=== PATIENT | female | born 1990 | race African-American/Black ===

== ENCOUNTER 2024-12-06 16:59 | Emergency (ER) | payer MEDICAID, OTHER ==
[~2024-12-06] VITALS: Ht 167.6 cm; Wt 122.0 kg
[2024-12-06 17:13] VITALS: O2SAT 100
[2024-12-06 17:21] VITALS: BP 128/85; PULSE 83; RESP 18; TEMP 37.1; O2SAT 100
[2024-12-06 17:52] LABS: BASOPHILS % 0.3 % (0.0-2.0); EOSINOPHILS % 0.1 % (0.0-5.0); HEMATOCRIT. 28.3 % (36.0-48.0); HEMOGLOBIN. 8.7 g/dL (12.0-16.0); LYMPHOCYTES % 10.8 % (20.0-50.0); MEAN PLATELET VOLUME 8.8 fl (7.4-10.4); MONOCYTES % 5.2 % (2.0-8.0); NEUTROPHILS % 83.6 % (40.0-76.0); PLATELET 306 x1000/uL (130-400); RED BLOOD CELL COUNT 4.17 mill/uL (4.2-5.4); RED CELL DISTRIBUTION WIDTH 22.2 % (11.6-14.6)
[2024-12-06 17:53] LABS: ADD RBC MORPHOLOGY YES
[2024-12-06 18:11] LABS: PLATELET ESTIMATE NORMAL
[2024-12-06 18:13] LABS: CREATININE 0.9 mg/dL (0.6-1.0)
[2024-12-06 18:14] LABS: UREA NITROGEN BLOOD 8 mg/dL (9-23)
[2024-12-06 19:03] LABS: BACTERIA URINE TRACE; RBC URINE NONE SEEN /hpf (0-2); SQUAMOUS EPITHELIAL CELL URINE 2+ /lpf (RARE/1+)
[2024-12-06 19:44] LABS: ETHANOL BLOOD < 10 mg/dL (<10)
[2024-12-06 19:46] LABS: ASPARTATE AMINOTRANSFERASE 16 IU/L (<34); BILIRUBIN DIRECT 0.2 mg/dL (<=3.0); BILIRUBIN TOTAL 0.5 mg/dL (0.1-1.0); PROTEIN TOTAL 6.6 g/dL (6.0-8.3)
[2024-12-06 20:09] LABS: *AMPHETAMINES SCREEN URINE NEGATIVE (NEGATIVE); *BARBITURATES SCREEN URINE NEGATIVE (NEGATIVE); *BENZODIAZEPINES SCREEN URINE NEGATIVE (NEGATIVE); *COCAINE SCREEN URINE NEGATIVE (NEGATIVE)
[2024-12-06 20:10] LABS: CANNABINOID URINE SCREEN NEGATIVE (NEGATIVE); ECSTASY MDMA SCREEN URINE NEGATIVE (NEGATIVE); METHADONE URINE SCREEN NEGATIVE (NEGATIVE); OPIATES URINE SCREEN NEGATIVE (NEGATIVE); PHENCYCLIDINE URINE SCREEN NEGATIVE (NEGATIVE)
[2024-12-06 20:19] LABS: HCG SCREEN NEGATIVE
[2024-12-06 20:33] LABS: CLARITY URINE CLEAR (CLEAR); COLOR URINE YELLOW (YELLOW); SPECIFIC GRAVITY URINE 1.025 (1.005-1.030)
[2024-12-06 20:34] LABS: GLUCOSE URINE NEGATIVE (NEGATIVE); KETONES URINE TRACE (NEGATIVE); LEUKOCYTE ESTERASE URINE 1+ (NEGATIVE); NITRITE URINE NEGATIVE (NEGATIVE); OCCULT BLOOD URINE NEGATIVE (NEGATIVE); PH URINE 7.5 (4.5-8.0); PROTEIN URINE TRACE (NEGATIVE); UROBILINOGEN URINE 0.2 E.U./dL (0.2-1.0)
[2024-12-07] MEDS ORDERED: FAMO-135 MT (02:23)
[2024-12-07] MEDS ORDERED: CEPH250C2 MT (02:23)
[2024-12-07] MEDS ORDERED: LACT1CAP78 MT (02:23)
[2024-12-07] MEDS ORDERED: FERR1TAB91 MT (02:23)
== END 2024-12-06 20:25 | disposition home or self-care (01) ==
LOC: ER 16:59
DX: R10.9 Unspecified abdominal pain (principal); Z53.21 Procedure and treatment not carried out due to patient leaving prior to being seen by health care provider; Z79.899 Other long term (current) drug therapy
CPT/HCPCS: 36415; 80048; 80076; 80305; 80320; 81003; 81025; 84703; 85025; 93005; G0480

== ENCOUNTER 2024-12-06 21:45 | Emergency (ER) | payer MEDICAID ==
[~2024-12-06] VITALS: Ht 165.1 cm; Wt 123.0 kg
[2024-12-06 21:55] VITALS: O2SAT 100
[2024-12-06 22:14] VITALS: TEMP 36.8
[2024-12-06 23:00] LABS: BASOPHILS % 0.3 % (0.0-2.0); EOSINOPHILS % 0.2 % (0.0-5.0); HEMATOCRIT. 28.5 % (36.0-48.0); HEMOGLOBIN. 8.8 g/dL (12.0-16.0); LYMPHOCYTES % 11.0 % (20.0-50.0); MEAN PLATELET VOLUME 8.6 fl (7.4-10.4); MONOCYTES % 4.5 % (2.0-8.0); NEUTROPHILS % 84.0 % (40.0-76.0); PLATELET 319 x1000/uL (130-400); RED BLOOD CELL COUNT 4.19 mill/uL (4.2-5.4); RED CELL DISTRIBUTION WIDTH 22.4 % (11.6-14.6)
[2024-12-06 23:13] LABS: CREATININE 1.0 mg/dL (0.6-1.0); UREA NITROGEN BLOOD 8 mg/dL (9-23)
[2024-12-06 23:39] LABS: ASPARTATE AMINOTRANSFERASE 13 IU/L (<34); BILIRUBIN DIRECT 0.1 mg/dL (<=3.0); BILIRUBIN TOTAL 0.4 mg/dL (0.1-1.0); PROTEIN TOTAL 6.8 g/dL (6.0-8.3)
[2024-12-06 23:41] LABS: HCG SCREEN NEGATIVE
[2024-12-06] MEDS: HYDROCODONE/ACETAMINOPHEN 5/325MG TABLET PO ONE (23:43)
[2024-12-06] MEDS: ONDANSETRON 4MG ODT PO ONE (23:44)
[2024-12-06] MEDS: PANTOPRAZOLE 40MG DR TABLET PO ONE (23:44)
[2024-12-07] MEDS: IBUPROFEN 400MG TABLET PO ONE (01:01)
[2024-12-07 01:56] LABS: CLARITY URINE CLEAR (CLEAR); COLOR URINE YELLOW (YELLOW); GLUCOSE URINE NEGATIVE (NEGATIVE); KETONES URINE TRACE (NEGATIVE); LEUKOCYTE ESTERASE URINE 1+ (NEGATIVE); NITRITE URINE NEGATIVE (NEGATIVE); OCCULT BLOOD URINE NEGATIVE (NEGATIVE); PH URINE 7.0 (4.5-8.0); PROTEIN URINE TRACE (NEGATIVE); SPECIFIC GRAVITY URINE 1.032 (1.005-1.030); UROBILINOGEN URINE 1.0 E.U./dL (0.2-1.0)
[2024-12-07 02:15] LABS: BACTERIA URINE TRACE; RBC URINE 0-2 /hpf (0-2); SQUAMOUS EPITHELIAL CELL URINE FEW /lpf (RARE/1+)
[2024-12-07] MEDS ORDERED: FERR1TAB91 MT (02:23)
[2024-12-07] MEDS ORDERED: CEPH250C2 MT (02:23)
[2024-12-07] MEDS ORDERED: LACT1CAP78 MT (02:23)
[2024-12-07] MEDS ORDERED: FAMO-135 MT (02:23)
[2024-12-07] MEDS ORDERED: LIDOCAINE HCL 1% 20ML VIAL INFIL ONE (02:30)
[2024-12-07 02:31] VITALS: BP 120/55; PULSE 79; RESP 16; O2SAT 99
[2024-12-07] MEDS: CEFTRIAXONE SODIUM 1G VIAL IM ONE (02:53)
== END 2024-12-07 03:01 | disposition home or self-care (01) ==
LOC: ER 21:45
DX: N39.0 Urinary tract infection, site not specified (principal); D64.9 Anemia, unspecified
CPT/HCPCS: 80076; 80048; 81003; 84703; 83690; 85025; 36415; 99285; 87086; 74176; 96372; Q0162; J0696; Z7610; 99283